=== PATIENT | male | born 2000 | race Two or more races ===

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

== ENCOUNTER → 2023-08-29 | Emergency (ER) | payer OTHER ==
[~2023-08-29] VITALS: Ht 180.3 cm; Wt 54.4 kg
== END | disposition home or self-care (01) ==
LOC: ER 22:19
DX: T78.1XXA Other adverse food reactions, not elsewhere classified, initial encounter (principal); X58.XXXA Exposure to other specified factors, initial encounter; Z91.010 Allergy to peanuts; Z91.018 Allergy to other foods